=== PATIENT | female | born 1980 | race African-American/Black ===

== ENCOUNTER 2018-06-22 14:03 | Emergency (ER) | payer BC ==
[~2018-06-22] VITALS: Ht 160 cm; Wt 59.9 kg
[2018-06-22 14:34] VITALS: Ht 160 cm; Wt 59.9 kg
[2018-06-22 17:13] LABS: PLATELET COUNT 329 x10^3mcL (130-400)
[2018-06-22 17:24] LABS: CALCIUM 8.9 mg/dL (8.5-10.1); CARBON DIOXIDE 25.9 mmol/L (21-32); CHLORIDE SERUM 102 mmol/L (98-107); GFR1 > 60 mL/min; GLUCOSE SERUM 72 mg/dL (74-106); POTASSIUM SERUM 3.4 mmol/L (3.5-5.1); SODIUM SERUM 140 mmol/L (136-145)
[2018-06-22 17:29] LABS: ALBUMIN 3.9 g/dL (3.4-5.0); ALKALINE PHOSPHATASE 68 U/L (46-116); ALT/SGPT 32 U/L (14-59); AST/SGOT 35 U/L (15-37); RED CELL DISTRIBUTION WIDTH 20.3 % (11.5-14.5); TOTAL PROTEIN, SERUM 7.8 g/dL (6.4-8.2)
[2018-06-22 17:42] LABS: BAND NEUTROPHIL 0 % (0-10); BASOPHIL 0 % (0-2); MONOCYTE 6 % (0-7); SEGMENTED NEUTROPHILS 67 % (37-75)
[2018-06-22 17:43] LABS: rbc morphology (normal/abnorm) ABNORMAL (NORMAL)
[2018-06-22 18:07] LABS: AMPHETAMINE QUAL UR POSITIVE (See below)
[2018-06-22 18:52] VITALS: BP 130/94
== END 2018-06-22 18:52 | disposition home or self-care (01) ==
LOC: ED 14:03
PROVIDERS: Emergency Medicine
DX: F41.9 Anxiety disorder, unspecified (principal); F43.9 Reaction to severe stress, unspecified; F19.10 Other psychoactive substance abuse, uncomplicated; Z98.890 Other specified postprocedural states
CPT/HCPCS: 36415; G0480